=== PATIENT | male | born 1985 | race Caucasian/White ===

== ENCOUNTER 2018-12-31 12:28 | Emergency (ER) | payer SELFPAY ==
[~2018-12-31] VITALS: Ht 185.4 cm; Wt 70.3 kg
[2018-12-31] MEDS ORDERED: PRD20T PO (13:33)
--- NOTE | 2018-12-31 13:33 | ED Integumentary General ---
General Chief Complaint: Allergic Reaction Stated Complaint: ALLERGIC REACTION;RASH Nursing Triage Note: pt arrives to ED with c/o a rash over his abdomen and sides and some on his right leg. Pt has had this for two weeks and has tried multiple different creams but nothing will take it away. Pt states that the rash doesn't hurt or itch. Source: patient Exam Limitations: no limitations History of Present Illness Date Seen by Provider: Dec 31, 2018 Time Seen by Provider: 13:28 Initial Comments 33-year-old male who presents to the emergency room with complaints of a rash on his abdomen and upper and lower extremities that started 2 weeks ago. He reports that 2 weeks ago he did change laundry detergents and noticed the rash shortly after. He reports that initially the rash did itch but it just does not seem to be going away with the use of xkfz-aaj-jawynro creams and medications. Timing/Duration: week (2) Past Crcyxik-Pfzkpr-Taxroh Hx Patient Social History Alcohol Use: Denies Use Recreational Drug Use: No Smoking Status: Never a Smoker Recent Foreign Travel: No Contact w/Someone Who Travel: No Recent Infectious Disease Expo: No Recent Hopitalizations: No Seasonal Allergies Seasonal Allergies: No Past Medical History Surgeries: No Respiratory: No Cardiac: Yes Deep Vein Thrombosis Neurological: No Genitourinary: No Gastrointestinal: No Musculoskeletal: No Endocrine: No HEENT: No Cancer: No Psychosocial: No Integumentary: No Blood Disorders: No Physical Exam Vital Signs Vital Signs - First Documented 12/31/18 12:50 Temp 98.5 Pulse 87 Resp 20 B/P (MAP) 147/88 (107) O2 Delivery Room Air Capillary Refill : Less Than 3 Seconds Progress/Results/Core Measures Results/Orders Vital Signs/I&O 12/31/18 12:50 Temp 98.5 Pulse 87 Resp 20 B/P (MAP) 147/88 (107) O2 Delivery Room Air Blood Pressure Mean: 107 Departure Impression Primary Impression: Allergic reaction Disposition: 01 HOME, SELF-CARE Condition: Stable/Unchanged Departure-Patient Inst. Decision time for Depature: 13:31 Referrals: NO,LOCAL PHYSICIAN (PCP) Primary Care Physician Patient Instructions: Skin Rash (DC) Add. Discharge Instructions: Take medications as directed. Do not use any more of your laundry detergent, rewash any clothing that has already previously been washed in the detergent that you're allergic to. You may also use rspg-twv-gjsmvqz Benadryl, Zyrtec, Pepcid for additional relief and histamine blockers. Return back to the emergency room for worsening symptoms, shortness of breath, or any other concerns as needed. All discharge instructions reviewed with patient and/or family. Voiced understanding. Scripts Prednisone (Prednisone) 20 Mg Tab 40 MG PO DAILY for 5 Days, #10 TAB Prov: VERA MAO 12/31/18 VERA MAO Dec 31, 2018 13:33
[2018-12-31 13:43] VITALS: BP 147/88
== END 2018-12-31 13:43 | disposition home or self-care (01) ==
LOC: ER 12:30
DX: T78.40XA Allergy, unspecified, initial encounter (principal); Z86.718 Personal history of other venous thrombosis and embolism
CPT/HCPCS: 99281

== ENCOUNTER 2019-01-12 17:21 | Emergency (ER) | payer SELFPAY ==
[~2019-01-12] VITALS: Ht 180.3 cm; Wt 81.6 kg
[~2019-01-12 17:21] MED LIST: PRD20T PO
--- NOTE | 2019-01-12 18:07 | ED Lower Extremity ---
General Chief Complaint: Lower Extremity Stated Complaint: DX W/ BLOOD CLOT IN L LEG/MORE SWELLING/SORE Nursing Triage Note: THE PT IS AMBULATORY TO THE ROOM WITHOUT DIFFICULTY. NO DISTRESS IS SEEN ON ARRIVAL. LOC IS NORMAL FOR THE PT. 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 No shortness of breath or chest pains.. He had a DVT in the left lower extremity which was unprovoked about 4 years ago. He was living in [place] at the time and states that he had a hypercoagulability workup done which she believes was negative. He has no personal or family history of clots prior to that incident. 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 He was for a time on Xarelto but stopped that a year ago. He is a nonsmoker. Reports no recent travel, no recent surgery. He lives here in [place] now does not have a local physician. Onset: last week Severity: moderate Pain/Injury Location: left leg Modifying Factors: Worse With Movement Allergies and Home Medications Home Medications Prednisone 20 Mg Tab, 40 MG PO DAILY Prescribed by: VERA MAO on 12/31/18 1757 Patient Home Medication List Home Medication List Reviewed: Yes Review of Systems Constitutional: see HPI; No chills, No fever EENTM: see HPI Respiratory: no symptoms reported; No cough, No dyspnea on exertion, No hemoptysis, No short of breath Cardiovascular: no symptoms reported; No chest pain, No edema, No Hx of Intervention, No palpitations, No syncope, No vascular heart diseas Genitourinary: no symptoms reported Musculoskeletal: no symptoms reported Skin: see HPI Psychiatric/Neurological: No Symptoms Reported Past Htelkvq-Gbhhcp-Rbddde Hx Patient Social History Recent Foreign Travel: No Contact w/Someone Who Travel: No Recent Infectious Disease Expo: No Recent Hopitalizations: No Physical Abuse: No Sexual Abuse: No Mistreated: No Fear: No Seasonal Allergies Seasonal Allergies: No Past Medical History Surgeries: No Respiratory: No Cardiac: Yes Deep Vein Thrombosis Neurological: No Genitourinary: No Gastrointestinal: No Musculoskeletal: No Endocrine: No HEENT: No Cancer: No Psychosocial: No Integumentary: No Blood Disorders: No Physical Exam Vital Signs Vital Signs - First Documented 01/12/19 17:32 Temp 98.2 Pulse 109 Resp 16 B/P (MAP) 146/88 (107) Capillary Refill : Less Than 3 Seconds Height, Weight, BMI Height: 5'11.00" Weight: 180lbs. oz. 81.629344oy; BMI Method:Estimated General Appearance: WD/WN, no apparent distress HEENT: PERRL/EOMI, normal ENT inspection Neck: non-tender, full range of motion Cardiovascular: regular rate, rhythm, no murmur, other (heart rate 92, oxygen saturation 99% room air) Respiratory: lungs clear, normal breath sounds, no respiratory distress, no accessory muscle use Gastrointestinal: normal bowel sounds, non tender Hips: bilateral hip non-tender, bilateral hip normal inspection, bilateral hip normal range of motion Legs: left leg swelling (there is some swelling to the left lower extremity, there is a palpable engorged vein posteriorly. There is a leg size discrepancy. The right mid calf measures 38 cm circumference, the left midcalf at the same location measures 40cm circumference) Knees: bilateral knee non-tender, bilateral knee normal inspection, bilateral knee normal range of motion Ankles: bilateral ankle non-tender, bilateral ankle normal inspection, bilateral ankle normal range of motion Feet: bilateral foot non-tender, bilateral foot normal inspection, bilateral foot normal range of motion Neurologic/Psychiatric: alert, normal mood/affect, oriented x 3 Skin: normal color, warm/dry Progress/Results/Core Measures Results/Orders Lab Results Laboratory Tests Test 01/12/19 18:07 Range/Units White Blood Count 6.8 4.3-11.0 10^3/uL Red Blood Count 5.31 4.35-5.85 10^6/uL Hemoglobin 16.2 13.3-17.7 G/DL Hematocrit 46 40-54 % Mean Corpuscular Volume 86 80-99 FL Mean Corpuscular Hemoglobin 31 25-34 PG Mean Corpuscular Hemoglobin Concent 36 32-36 G/DL Red Cell Distribution Width 12.2 10.0-14.5 % Platelet Count 205 130-400 10^3/uL Mean Platelet Volume 10.4 7.4-10.4 FL Neutrophils (%) (Auto) 65 42-75 % Lymphocytes (%) (Auto) 26 12-44 % Monocytes (%) (Auto) 8 0-12 % Eosinophils (%) (Auto) 1 0-10 % Basophils (%) (Auto) 0 0-10 % Neutrophils # (Auto) 4.4 1.8-7.8 X 10^3 Lymphocytes # (Auto) 1.8 1.0-4.0 X 10^3 Monocytes # (Auto) 0.5 0.0-1.0 X 10^3 Eosinophils # (Auto) 0.1 0.0-0.3 10^3/uL Basophils # (Auto) 0.0 0.0-0.1 10^3/uL D-Dimer 0.51 H 0.00-0.49 UG/ML Sodium Level 139 135-145 MMOL/L Potassium Level 3.6 3.6-5.0 MMOL/L Chloride Level 104 98-107 MMOL/L Carbon Dioxide Level 25 21-32 MMOL/L Anion Gap 10 5-14 MMOL/L Blood Urea Nitrogen 15 7-18 MG/DL Creatinine 1.23 0.60-1.30 MG/DL Estimat Glomerular Filtration Rate > 60 BUN/Creatinine Ratio 12 Glucose Level 85 70-105 MG/DL Calcium Level 9.6 8.5-10.1 MG/DL My Orders Orders - NÉSTOR MINA APRN Cbc With Automated Diff (01/12/19 18:02) Fibrin Degradation Products (01/12/19 18:02) Basic Metabolic Panel (01/12/19 18:02) Vital Signs/I&O 01/12/19 17:32 Temp 98.2 Pulse 109 Resp 16 B/P (MAP) 146/88 (107) Blood Pressure Mean: 107 Departure Communication (Admissions) 1903-given the calf circumference discrepancy, the elevated d-dimer and history of DVT it would be reasonable to start him on anticoagulation. Given prescription for xaarelto. Impression Primary Impression: Suspected DVT (deep vein thrombosis) Disposition: 01 HOME, SELF-CARE Condition: Stable Departure-Patient Inst. Decision time for Depature: 19:04 Referrals: TAMARA LIAO BETHANY N MD GAULT,DARRICK RICHARDSER,KIKO F MD NO,LOCAL PHYSICIAN (PCP) Primary Care Physician Patient Instructions: Deep Vein Thrombosis (Blood Clots in the Legs) Add. Discharge Instructions: 1. Call the [facility] at the listed number below tomorrow to make an appointment to be seen as soon as possible this week to obtain an ultrasound. Scripts Rivaroxaban (Xarelto) 15 Mg Tablet 15 MG PO BID, #42 TAB Prov: NÉSTOR MINA APRN 01/12/19 Copy Copies To 1: TAMARA LIAO DO; DEVENDRA NEVILLE MD; DARRICK RIOJAS MD, PETER J APRN Jan 12, 2019 18:07
[2019-01-12 18:13] LABS: BASOPHILS % (AUTO) 0 % (0-10); EOSINOPHILS # (AUTO) 0.1 10^3/uL (0.0-0.3); EOSINOPHILS % (AUTO) 1 % (0-10); HEMATOCRIT 46 % (40-54); HEMOGLOBIN 16.2 G/DL (13.3-17.7); LYMPHOCYTES # (AUTO) 1.8 X 10^3 (1.0-4.0); LYMPHOCYTES % (AUTO) 26 % (12-44); MEAN CORPUSCULAR HEMOGLOBIN 31 PG (25-34); MEAN CORPUSCULAR HGB CONC 36 G/DL (32-36); MEAN CORPUSCULAR VOLUME 86 FL (80-99); MEAN PLATELET VOLUME 10.4 FL (7.4-10.4); MONOCYTES # (AUTO) 0.5 X 10^3 (0.0-1.0); MONOCYTES % (AUTO) 8 % (0-12); NEUTROPHILS # (AUTO) 4.4 X 10^3 (1.8-7.8); NEUTROPHILS % (AUTO) 65 % (42-75); PLATELET COUNT 205 10^3/uL (130-400); RED CELL DISTRIBUTION WIDTH 12.2 % (10.0-14.5); WHITE BLOOD COUNT 6.8 10^3/uL (4.3-11.0)
[2019-01-12 18:37] LABS: BUN/CREATININE RATIO 12; CALCIUM 9.6 MG/DL (8.5-10.1); CARBON DIOXIDE 25 MMOL/L (21-32); CHLORIDE 104 MMOL/L (98-107); CREATININE SERUM 1.23 MG/DL (0.60-1.30); GFR ESTIMATED > 60; GLUCOSE 85 MG/DL (70-105); POTASSIUM 3.6 MMOL/L (3.6-5.0); SODIUM 139 MMOL/L (135-145)
[2019-01-12] MEDS ORDERED: RIVA15TA PO (19:10)
[2019-01-12 19:26] VITALS: BP 140/80
[2019-01-12] MEDS ORDERED: RIVAROXABAN 15 MG TABLET (XARELTO) PO ONE (19:30)
== END 2019-01-12 19:27 | disposition home or self-care (01) ==
LOC: EDUNIT# 17:21 → ER 17:23
DX: M79.89 Other specified soft tissue disorders (principal); M79.605 Pain in left leg; Z79.52 Long term (current) use of systemic steroids; Z86.718 Personal history of other venous thrombosis and embolism
CPT/HCPCS: 36415; 80048; 85025; 85379; 99283

== ENCOUNTER 2021-01-24 07:15 | Emergency (ER) | payer OTHER ==
[~2021-01-24] VITALS: Ht 182.8 cm; Wt 84.0 kg
[~2021-01-24 07:15] MED LIST changes: +RIVA15TA2 PO
--- NOTE | 2021-01-24 07:44 | ED EENT ---
History of Present Illness General Chief Complaint: Dental Problems/Pain Stated Complaint: ABCESS TOOTH Nursing Triage Note: AMB TO ROOM C/O TOOTH ACHE L LOWER Source: patient Exam Limitations: no limitations History of Present Illness Date Seen by Provider: Jan 24, 2021 Time Seen by Provider: 07:20 Initial Comments Here with report of left lower jaw swelling and tooth pain. Does have fractured tooth. He will be seeing a dentist soon. Pain started few days ago and was markedly worse yesterday and this morning he woke up with quite a bit of swelling. This concerned him so he presented to the ED. Denies fever, swallowing or breathing problems or other concerns. Pain is better with Tylenol. Timing/Duration: gradual, other (Few days) Severity: moderate Location: facial (Swelling), dental (Pain) Prearrival Treatment: over the counter meds Associated Symptoms: facial pain/swelling; No fever Allergies and Home Medications Allergies Coded Allergies: No Known Drug Allergies (Unverified , 01/12/19) Home Medications Prednisone 20 Mg Tab, 40 MG PO DAILY Prescribed by: VERA MAO on 12/31/181332 Rivaroxaban 15 Mg Tablet, 15 MG PO BID Prescribed by: NÉSTOR MINA on 01/12/19 191 Patient Home Medication List Home Medication List Reviewed: Yes Review of Systems Review of Systems Constitutional: see HPI; No chills, No fever Mouth: pain, swelling Throat: denies pain, denies aphonia, denies muffled, denies painful swallowing Respiratory: no symptoms reported Cardiovascular: no symptoms reported Past Vlthzlg-Ntwwam-Zjyjpk Hx Past Med/Social Hx: Reviewed Nursing Past Med/Soc Hx Patient Social History Alcohol Use: Denies Use Smoking Status: Never a Smoker Recent Infectious Disease Expo: No Recent Hopitalizations: No Seasonal Allergies Seasonal Allergies: No Past Medical History Surgeries: No Respiratory: No Cardiac: Yes Deep Vein Thrombosis Neurological: No Genitourinary: No Gastrointestinal: No Musculoskeletal: No Endocrine: No HEENT: No Cancer: No Psychosocial: No Integumentary: No Blood Disorders: No Family Medical History Reviewed Nursing Family Hx Physical Exam Vital Signs Vital Signs - First Documented 01/24/21 07:21 Temp 36.4 Pulse 97 Resp 18 B/P (MAP) 133/82 (99) Pulse Ox 99 Height, Weight, BMI Height: 5'11.00" Weight: 180lbs. oz. 81.383285tv; 25.00 BMI Method:Estimated General Appearance: WD/WN, mild distress Mouth/Throat: maxillary swelling; No pharynx tenderness (Left), No trismus ( sided), No voice changes; other (Moderate swelling to the left lower jaw where he has 2 fractured teeth in the area of the teeth #20 and 21.) Neck: full range of motion, supple, normal inspection Cardiovascular: regular rate, rhythm, no murmur Respiratory: lungs clear, normal breath sounds Neurologic/Psychiatric: alert, oriented x 3 Skin: normal color, warm/dry Progress/Results/Core Measures Results/Orders My Orders Orders - ASH BEASLEY MD Rocephin 1000mg Im (01/24/21 07:45) Lidocaine 1% Inj 20 Ml (Xylocaine 1% Inj (01/24/21 07:45) Vital Signs/I&O 01/24/21 07:21 Temp 36.4 Pulse 97 Resp 18 B/P (MAP) 133/82 (99) Pulse Ox 99 Blood Pressure Mean: 99 Progress Progress Note : Progress Note Seen and evaluated. Due to the moderate swelling and rapid rate of progression since yesterday, we will give Rocephin 1 g IM and initiate outpatient antibiot ics. He will follow up with a dentist. Pain controlled with Tylenol. Discharged home with return precautions. Patient verbalized understanding instructions and agreement with plan. Departure Impression Primary Impression: Dental abscess Disposition: 01 HOME, SELF-CARE Condition: Stable Departure-Patient Inst. Decision time for Depature: 07:36 Referrals: NO,LOCAL PHYSICIAN (PCP/Family) Primary Care Physician Patient Instructions: Fractured Tooth (DC), Tooth Abscess (DC) Add. Discharge Instructions: All discharge instructions reviewed with patient and/or family. Voiced understanding. Take antibiotics as directed. You may take Tylenol/acetaminophen 1000 mg every 6 hours as needed for pain. Follow-up with the dentist [id number]. You should rinse your mouth 2-3 times daily with salt water by applying 1 teaspoon of table salt into 1 cup of warm water and then swishing and spitting solution. Continue to brush your teeth. You may use topical pain relief such as Anbesol gel over area of concern as well. Return for worse pain, swelling, swallowing or breathing problems, fever or other concerns as needed. Scripts Amoxicillin (Amoxicillin) 500 Mg Capsule 500 MG PO TID, #30 CAP 0 Refills Prov: ASH BEASLEY MD 01/24/21 Images Mouth/Nose 1 - Caries, Fracture Tooth, Swelling, Tenderness ASH BEASLEY MD Jan 24, 2021 07:44
[2021-01-24] MEDS ORDERED: LIDOCAINE 1% INJ 20 ML 20 ML VIAL INJ ONE (07:45)
[2021-01-24] MEDS ORDERED: cefTRIAXone 1,000 MG/2.86 ml vial (IM ONLY) IM ONE (07:45)
[2021-01-24] MEDS ORDERED: AMOX500C2 PO (07:52)
[2021-01-24 08:03] VITALS: BP 124/85
== END 2021-01-24 08:02 | disposition home or self-care (01) ==
LOC: EDUNIT# 07:15 → ER 07:18
DX: K04.7 Periapical abscess without sinus (principal); Z79.52 Long term (current) use of systemic steroids; Z79.01 Long term (current) use of anticoagulants
CPT/HCPCS: 99284

== ENCOUNTER 2021-02-01 14:11 | Emergency (ER) | payer OTHER ==
[~2021-02-01] VITALS: Ht 185.4 cm; Wt 84.4 kg
[~2021-02-01 14:11] MED LIST changes: +AMOX500C2 PO
--- NOTE | 2021-02-01 14:38 | ED General ---
General Chief Complaint: Dizziness/Syncope Stated Complaint: DIZZINESS, Nursing Triage Note: pt reports sunday had vomiting and dizziness. sun and sunday pt felt better. Today pt was at work when he suddenly had a weird feeling in his ear, became dizzy, had nausea and began puking. Pt is on antibiotics for a dental abcess. Nursing Sepsis Screen: No Definite Risk Source of Information: Patient Exam Limitations: No Limitations History of Present Illness Date Seen by Provider: Feb 01, 2021 Time Seen by Provider: 14:36 Initial Comments To ER with vomiting and dizziness. This followed a popping sensation in his left ear. He has had a few episodes of vomiting from the dizziness. The dizziness started first. He was recently treated for a left mandible abscess. He is still on amoxicillin for that. He is on Xarelto for history of recurrent DVT. He states that his dental abscess is much improved. Timing/Duration: 1-2 Days Severity: Moderate Associated Systoms: No Headaches; Nausea/Vomiting Allergies and Home Medications Allergies Coded Allergies: No Known Drug Allergies (Unverified , 01/12/19) Home Medications Amoxicillin 500 Mg Capsule, 500 MG PO TID Prescribed by: ASH BEASLEY on 01/24/21 0752 Prednisone 20 Mg Tab, 40 MG PO DAILY Prescribed by: VERA MAO on 12/31/18 1333 Rivaroxaban 15 Mg Tablet, 15 MG PO BID Prescribed by: NÉSTOR MINA on 01/12/19 1910 Patient Home Medication List Home Medication List Reviewed: Yes Review of Systems Review of Systems Constitutional: see HPI, dizziness EENTM: see HPI Respiratory: no symptoms reported Cardiovascular: no symptoms reported Genitourinary: no symptoms reported Musculoskeletal: no symptoms reported Past Hnesepj-Kgfucl-Okpluw Hx Patient Social History Alcohol Use: Denies Use Drug of Choice: Marijuana once a month Smoking Status: Never a Smoker Recent Infectious Disease Expo: No Recent Hopitalizations: No Seasonal Allergies Seasonal Allergies: No Past Medical History Surgeries: No Respiratory: No Cardiac: Yes Deep Vein Thrombosis Neurological: No Genitourinary: No Gastrointestinal: No Musculoskeletal: No Endocrine: No HEENT: No Cancer: No Psychosocial: No Integumentary: No Blood Disorders: No Physical Exam Vital Signs Vital Signs - First Documented 02/01/21 14:20 Temp 37.1 Pulse 78 Resp 16 B/P (MAP) 123/81 (95) Pulse Ox 98 O2 Delivery Room Air Capillary Refill : Less Than 3 Seconds Height, Weight, BMI Height: 5'11.00" Weight: 180lbs. oz. 81.792567ng; 24.00 BMI Method:Estimated General Appearance: No Apparent Distress, WD/WN Eyes: Bilateral Eye Normal Inspection, Bilateral Eye PERRL, Bilateral Eye EOMI HEENT: PERRL/EOMI, TMs Normal Neck: Full Range of Motion, Normal Inspection Respiratory: Normal Breath Sounds, No Accessory Muscle Use, No Respiratory Distress Cardiovascular: Regular Rate, Rhythm, Normal Peripheral Pulses Gastrointestinal: Normal Bowel Sounds, Non Tender, Soft Extremity: Normal Capillary Refill, Normal Inspection Neurologic/Psychiatric: Alert, Oriented x3 Skin: Normal Color, Warm/Dry Progress/Results/Core Measures Suspected Sepsis Recent Fever Within 48 Hours: No Infection Criteria Present: None New/Unexplained Altered Menta: No Sepsis Screen: No Definite Risk SIRS Temperature: Pulse: 78 Respiratory Rate: 16 Laboratory Tests 02/01/21 14:30: White Blood Count 13.2H Blood Pressure 123 /81 Mean: 95 Laboratory Tests 02/01/21 14:30: Creatinine 0.89, Platelet Count 262 Results/Orders Lab Results Laboratory Tests Test 02/01/21 14:30 Range/Units White Blood Count 13.2 H 4.3-11.0 10^3/uL Red Blood Count 5.09 4.30-5.52 10^6/uL Hemoglobin 15.2 13.3-17.7 g/dL Hematocrit 46 40-54 % Mean Corpuscular Volume 89 80-99 fL Mean Corpuscular Hemoglobin 30 25-34 pg Mean Corpuscular Hemoglobin Concent 33 32-36 g/dL Red Cell Distribution Width 12.0 10.0-14.5 % Platelet Count 262 130-400 10^3/uL Mean Platelet Volume 10.0 9.0-12.2 fL Immature Granulocyte % (Auto) 1 % Neutrophils (%) (Auto) 90 H 42-75 % Lymphocytes (%) (Auto) 6 L 12-44 % Monocytes (%) (Auto) 3 0-12 % Eosinophils (%) (Auto) 0 0-10 % Basophils (%) (Auto) 0 0-10 % Neutrophils # (Auto) 11.9 H 1.8-7.8 10^3/uL Lymphocytes # (Auto) 0.8 L 1.0-4.0 10^3/uL Monocytes # (Auto) 0.4 0.0-1.0 10^3/uL Eosinophils # (Auto) 0.0 0.0-0.3 10^3/uL Basophils # (Auto) 0.0 0.0-0.1 10^3/uL Immature Granulocyte # (Auto) 0.1 0.0-0.1 10^3/uL Neutrophils % (Manual) 90 % Lymphocytes % (Manual) 6 % Monocytes % (Manual) 2 % Eosinophils % (Manual) 0 % Basophils % (Manual) 0 % Band Neutrophils 2 % Blood Morphology Comment NORMAL Sodium Level 142 135-145 MMOL/L Potassium Level 4.0 3.6-5.0 MMOL/L Chloride Level 106 98-107 MMOL/L Carbon Dioxide Level 23 21-32 MMOL/L Anion Gap 13 5-14 MMOL/L Blood Urea Nitrogen 10 7-18 MG/DL Creatinine 0.89 0.60-1.30 MG/DL Estimat Glomerular Filtration Rate > 60 BUN/Creatinine Ratio 11 Glucose Level 99 70-105 MG/DL Calcium Level 9.2 8.5-10.1 MG/DL My Orders Orders - NÉSTOR MINA APRN Cbc With Automated Diff (02/01/21 14:34) Basic Metabolic Panel (02/01/21 14:34) Ct Head Wo (02/01/21 14:34) Ed Iv/Invasive Line Start (02/01/21 14:34) Meclizine Tablet (Antivert Tablet) (02/01/21 14:45) Ns Iv 1000 Ml (Sodium Chloride 0.9%) (02/01/21 14:45) Manual Differential (02/01/21 14:30) Medications Given in ED Current Medications Medications Dose Ordered Sig/Wojciech Route Start Time Stop Time Status Last Admin Dose Admin Meclizine HCl 25 mg ONCE ONCE PO 02/01/21 14:45 02/01/21 14:46 DC 02/01/21 14:46 25 MG Vital Signs/I&O 02/01/21 14:20 Temp 37.1 Pulse 78 Resp 16 B/P (MAP) 123/81 (95) Pulse Ox 98 O2 Delivery Room Air Capillary Refill : Less Than 3 Seconds Blood Pressure Mean: 95 Departure Impression Primary Impression: Dizziness Disposition: 01 HOME, SELF-CARE Condition: Stable Departure-Patient Inst. Decision time for Depature: 15:20 Referrals: DARRICK RIOJAS MD (PCP/Family) Primary Care Physician Patient Instructions: Vertigo (a Type of Dizziness) (DC) Add. Discharge Instructions: 1. Finish out your antibiotics 2. Medication as directed 3. Return to ER for any worsening 4. Follow-up with your doctor next week. All discharge instructions reviewed with patient and/or family. Voiced unders tanding. Scripts Meclizine HCl (Meclizine HCl) 25 Mg Tablet 25 MG PO TID, #10 TAB Prov: NÉSTOR MINA APRN 02/01/21 NÉSTOR MINA APRN Feb 01, 2021 14:37
[2021-02-01 14:40] LABS: BASOPHILS % (AUTO) 0 % (0-10); EOSINOPHILS % (AUTO) 0 % (0-10); HEMATOCRIT 46 % (40-54); HEMOGLOBIN 15.2 g/dL (13.3-17.7); LYMPHOCYTES # (AUTO) 0.8 10^3/uL (1.0-4.0); LYMPHOCYTES % (AUTO) 6 % (12-44); MEAN CORPUSCULAR HEMOGLOBIN 30 pg (25-34); MEAN CORPUSCULAR HGB CONC 33 g/dL (32-36); MEAN CORPUSCULAR VOLUME 89 fL (80-99); MONOCYTES # (AUTO) 0.4 10^3/uL (0.0-1.0); MONOCYTES % (AUTO) 3 % (0-12); NEUTROPHILS # (AUTO) 11.9 10^3/uL (1.8-7.8); NEUTROPHILS % (AUTO) 90 % (42-75); PLATELET COUNT 262 10^3/uL (130-400); WHITE BLOOD COUNT 13.2 10^3/uL (4.3-11.0)
[2021-02-01] MEDS ORDERED: MECLIZINE 25 MG (ANTIVERT) TAB PO ONE (14:45)
[2021-02-01] MEDS ORDERED: NS IV 1000 ML 1,000 ML IV SCH (14:45)
[2021-02-01 14:51] LABS: CHLORIDE 106 MMOL/L (98-107); SODIUM 142 MMOL/L (135-145)
[2021-02-01 14:52] LABS: CALCIUM 9.2 MG/DL (8.5-10.1); GLUCOSE 99 MG/DL (70-105)
[2021-02-01 14:54] LABS: CARBON DIOXIDE 23 MMOL/L (21-32)
[2021-02-01 14:56] LABS: CREATININE SERUM 0.89 MG/DL (0.60-1.30); GFR ESTIMATED > 60
[2021-02-01 14:57] LABS: BUN/CREATININE RATIO 11
[2021-02-01 15:00] LABS: BAND NEUTROPHILS 2 %; BASOPHILS % (MANUAL) 0 %; EOSINOPHILS % (MANUAL) 0 %; LYMPHOCYTES % (MANUAL) 6 %; MONOCYTES % (MANUAL) 2 %; NEUTROPHILS % (MANUAL) 90 %; RBC MORPH NORMAL
--- NOTE | 2021-02-01 15:08 | Diagnostic Imaging Report ---
INDICATION: Dizziness. Vomiting. TECHNIQUE: Routine non contrast-enhanced axial images were obtained from the skull base to the vertex. Auto Exposure Controls were utilized during the CT exam to meet ALARA standards for radiation dose reduction COMPARISON: None. FINDINGS: The ventricles and cortical sulci are normal in size and contour. There is no midline shift or mass-effect. No acute intra-axial hemorrhage is seen. There are no abnormal areas of increased or decreased density to suggest acute hemorrhage or edema. No extra-axial masses or collections are present. The bony calvarium is intact. The visualized paranasal sinuses are unremarkable. The mastoid air cells are clear. IMPRESSION: 1. No acute intracranial abnormality. No CT evidence of mass, acute infarct or intracranial hemorrhage. Dictated by: Dictated on workstation # [id number]
[2021-02-01] MEDS ORDERED: MECL-149 PO (15:21)
[2021-02-01 16:26] VITALS: BP 113/73
== END 2021-02-01 16:26 | disposition home or self-care (01) ==
LOC: EDUNIT# 14:11 → ER 14:13
DX: R42 Dizziness and giddiness (principal); Z86.718 Personal history of other venous thrombosis and embolism; Z79.01 Long term (current) use of anticoagulants; Z79.52 Long term (current) use of systemic steroids
CPT/HCPCS: 36415; 70450; 80048; 85007; 85027; 96360; 96361

== ENCOUNTER 2022-10-25 09:55 | Emergency (ER) | payer OTHER ==
[~2022-10-25] VITALS: Ht 185 cm; Wt 88.4 kg
[~2022-10-25 09:55] MED LIST changes: +MECL-149 PO
--- NOTE | 2022-10-25 11:17 | ED General ---
General Chief Complaint: General Problems/Pain Stated Complaint: NAUSEA | DIZZINESS Nursing Triage Note: PT PRESENTS TO ED WITH COMPLAINTS OF INTERMITTENT NAUSEA, DIZZINESS, FATIGUE, AND HUNGER SINCE 10/17/22. PT DENIES ANY FEVER. PT REPORTS HE HAS TAKEN SEVERAL HOME COVID TESTS SINCE HE STARTED FEELING ILL AND THEY HAVE ALL BEEN NEGATIVE. Source of Information: Patient Exam Limitations: No Limitations History of Present Illness Date Seen by Provider: Oct 25, 2022 Time Seen by Provider: 11:05 Initial Comments This is a 37-year-old male who presented to the ER via POV with complaints of intermittent nausea, fatigue, dizziness since October 17, 2022. States that every other day he will just feel "terrible". Yesterday he felt great, today he attempted to eat a sandwich because he was hungry and shortly after eating he felt nauseated. Has had intermittent diarrhea, denies bloody, dark, tarry stools. Denies fever, chills, cough, abdominal pain, dysuria. Has taken several home COVID test and all have been negative. No recent travel. No new foods or change in routine. Tolerated water and fluids w/o difficulty. Only reported past medical problem is DVT last year, completed Xarelto. Denies leg pain, swelling, warmth at this time. Allergies and Home Medications Allergies Coded Allergies: No Known Drug Allergies (Unverified , 01/12/19) Patient Home Medication List Home Medication List Reviewed: Yes Amoxicillin (Amoxicillin) 500 Mg Capsule, 500 MG PO TID Prescribed by: ASH BEASLEY on 01/24/21 0752 Meclizine HCl (Meclizine HCl) 25 Mg Tablet, 25 MG PO TID Prescribed by: NÉSTOR MINA on 02/01/21 1521 Prednisone (Prednisone) 20 Mg Tab, 40 MG PO DAILY Prescribed by: VERA MAO on 12/31/18 1333 Rivaroxaban (Xarelto Tablet) 15 Mg Tablet, 15 MG PO BID Prescribed by: NÉSTOR MINA on 01/12/19 191 Review of Systems Review of Systems Constitutional: see HPI Past Ijjsdmm-Tiuire-Pftppi Hx Patient Social History Tobacco Use?: No Substance use?: No Alcohol Use?: No Pt feels they are or have been: No Seasonal Allergies Seasonal Allergies: No Past Medical History Surgery/Hospitalization HX: DVT Surgeries: No Respiratory: No Cardiac: Yes Deep Vein Thrombosis Neurological: No Genitourinary: No Gastrointestinal: No Musculoskeletal: No Endocrine: No HEENT: No Cancer: No Psychosocial: No Integumentary: No Blood Disorders: No Physical Exam Vital Signs Vital Signs - First Documented 10/25/22 10:05 Temp 36.1 Pulse 90 Resp 18 B/P (MAP) 135/101 (112) Pulse Ox 98 Capillary Refill : Less Than 3 Seconds Height, Weight, BMI Height: 5'11.00" Weight: 180lbs. oz. 81.358721nc; 25.00 BMI Method:Estimated General Appearance: No Apparent Distress, WD/WN Eyes: Bilateral Eye Normal Inspection, Bilateral Eye PERRL, Bilateral Eye EOMI HEENT: PERRL/EOMI, Normal ENT Inspection, Pharynx Normal Neck: Full Range of Motion, Normal Inspection, Supple Respiratory: Lungs Clear, Normal Breath Sounds, No Accessory Muscle Use, No Respiratory Distress Cardiovascular: Regular Rate, Rhythm, No Edema, No Gallop, No Murmur Gastrointestinal: Normal Bowel Sounds; No No Organomegaly; Non Tender, Soft Back: Normal Inspection, No Vertebral Tenderness Extremity: Normal Capillary Refill, Normal Inspection, Normal Range of Motion Neurologic/Psychiatric: Alert, Oriented x3, No Motor/Sensory Deficits, Normal Mood/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, 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 Norm as Tested Skin: Normal Color, Warm/Dry Progress/Results/Core Measures Suspected Sepsis SIRS Temperature: Pulse: 90 Respiratory Rate: 18 Laboratory Tests 10/25/22 12:17: White Blood Count 6.2 Blood Pressure 135 /101 Mean: 112 Laboratory Tests 10/25/22 12:17: Platelet Count 217 Results/Orders Lab Results Laboratory Tests Test 10/25/22 11:13 10/25/22 11:14 10/25/22 12:17 Range/Units Influenza Type A (RT-PCR) Not Detected Not Detecte Influenza Type B (RT-PCR) Not Detected Not Detecte SARS-CoV-2 RNA (RT-PCR) Not Detected Not Detecte Urine Color YELLOW Urine Clarity CLEAR Urine pH 6.0 5-9 Urine Specific [place] >=1.030 1.016-1.022 Urine Protein NEGATIVE NEGATIVE Urine Glucose (UA) NEGATIVE NEGATIVE Urine Ketones NEGATIVE NEGATIVE Urine Nitrite NEGATIVE NEGATIVE Urine Bilirubin NEGATIVE NEGATIVE Urine Urobilinogen 0.2 < = 1.0 MG/DL Urine Leukocyte Esterase NEGATIVE NEGATIVE Urine RBC (Auto) NEGATIVE NEGATIVE Urine RBC NONE /HPF Urine WBC RARE /HPF Urine Crystals PRESENT H /LPF Urine Amorphous Sediment RARE REGINA URATES H /LPF Urine Bacteria NEGATIVE /HPF Urine Casts NONE /LPF Urine Mucus MODERATE H /LPF Urine Culture Indicated NO White Blood Count 6.2 4.3-11.0 10^3/uL Red Blood Count 5.58 H 4.30-5.52 10^6/uL Hemoglobin 16.9 13.3-17.7 g/dL Hematocrit 48 40-54 % Mean Corpuscular Volume 86 80-99 fL Mean Corpuscular Hemoglobin 30 25-34 pg Mean Corpuscular Hemoglobin Concent 35 32-36 g/dL Red Cell Distribution Width 11.9 10.0-14.5 % Platelet Count 217 130-400 10^3/uL Mean Platelet Volume 10.2 9.0-12.2 fL Immature Granulocyte % (Auto) 0 % Neutrophils (%) (Auto) 73 42-75 % Lymphocytes (%) (Auto) 21 12-44 % Monocytes (%) (Auto) 5 0-12 % Eosinophils (%) (Auto) 1 0-10 % Basophils (%) (Auto) 1 0-10 % Neutrophils # (Auto) 4.5 1.8-7.8 10^3/uL Lymphocytes # (Auto) 1.3 1.0-4.0 10^3/uL Monocytes # (Auto) 0.3 0.0-1.0 10^3/uL Eosinophils # (Auto) 0.0 0.0-0.3 10^3/uL Basophils # (Auto) 0.0 0.0-0.1 10^3/uL Immature Granulocyte # (Auto) 0.0 0.0-0.1 10^3/uL Sodium Level 139 135-145 MMOL/L Potassium Level 4.5 3.6-5.0 MMOL/L Chloride Level 106 98-107 MMOL/L Glucose Level 83 70-105 MG/DL Calcium Level 9.6 8.5-10.1 MG/DL Corrected Calcium 8.5-10.1 MG/DL Total Protein 8.0 6.4-8.2 GM/DL Albumin 4.6 H 3.2-4.5 GM/DL My Orders Orders - INGA BOUCHER PLASTERER TENDER Thyroid Stimulating Hormone (10/25/22 11:02) Cbc With Automated Diff (10/25/22 11:02) Comprehensive Metabolic Panel (10/25/22 11:02) Covid 19 Inhouse Test (10/25/22 11:02) Influenza A And B By Pcr (10/25/22 11:02) Ua Culture If Indicated (10/25/22 11:02) Magnesium (10/25/22 11:21) Vital Signs/I&O 10/25/22 10:05 Temp 36.1 Pulse 90 Resp 18 B/P (MAP) 135/101 (112) Pulse Ox 98 Capillary Refill : Less Than 3 Seconds Blood Pressure Mean: 112 Progress Note : Progress Note Patient examined in no acute distress. Vital signs are stable, no temperature at this time. Has vague symptoms, may represent gastrointestinal virus versus bacterial infection. We will go ahead and obtain COVID and flu swabs to rule out viral source. Additionally will add CBC to evaluate for infectious process or low hemoglobin. Reported a few green bile stools, states that he did eat leafy greens the day before. CMP added, will evaluate LFTs and renal function as well as electrolytes. We will also add magnesium level. TSH added to evaluate for hypothyroidsim. Departure Impression Primary Impression: Fatigue Additional Impressions: Nausea Diarrhea Disposition: HOME, SELF-CARE Condition: Stable Departure-Patient Inst. Decision time for Depature: 12:45 Referrals: DARRICK RIOJAS MD (PCP/Family) Primary Care Physician Patient Instructions: Fatigue ED Add. Discharge Instructions: Plan: 1. Follow-up with Dr. Riojas later this week or next week if your symptoms persist. 2. You can take Zofran 1 tablet by mouth 15 minutes before eating to see if this improves your nausea. 3. I would start with small bland foods and advance as tolerated. 4. Return to the ER for any new, concerning, worsening symptoms. All discharge instructions reviewed with patient and/or family. Voiced understanding. Scripts Ondansetron (Ondansetron Odt) 4 Mg Tab.rapdis 4 MG PO Q6H PRN for NAUSEA/VOMITING, #8 TAB 0 Refills Prov: INGA BOUCHER APRN 10/25/22 Work/School Note: Work Release Form Date Seen in the Emergency Department: Oct 25, 2022 Return to Work: Oct 26, 2022 Restrictions: No Restrictions INGA BOUCHER PLASTERER TENDER Oct 25, 2022 11:17
[2022-10-25 11:23] LABS: BILIRUBIN,URINE NEGATIVE (NEGATIVE); CLARITY,URINE CLEAR; COLOR,URINE YELLOW; GLUCOSE, URINE (UA) NEGATIVE (NEGATIVE); KETONES,URINE NEGATIVE (NEGATIVE); LEUKOCYTE ESTERASE ,URINE NEGATIVE (NEGATIVE); NITRITE,URINE NEGATIVE (NEGATIVE); PROTEIN,URINE NEGATIVE (NEGATIVE)
[2022-10-25 11:43] LABS: AMORPHOUS SEDIMENT,UR RARE AMOR URATES /LPF; BACTERIA,URINE NEGATIVE /HPF; WBC,URINE RARE /HPF
[2022-10-25 12:19] LABS: BASOPHILS % (AUTO) 1 % (0-10); EOSINOPHILS % (AUTO) 1 % (0-10); HEMATOCRIT 48 % (40-54); HEMOGLOBIN 16.9 g/dL (13.3-17.7); LYMPHOCYTES # (AUTO) 1.3 10^3/uL (1.0-4.0); LYMPHOCYTES % (AUTO) 21 % (12-44); MEAN CORPUSCULAR HEMOGLOBIN 30 pg (25-34); MEAN CORPUSCULAR HGB CONC 35 g/dL (32-36); MEAN CORPUSCULAR VOLUME 86 fL (80-99); MEAN PLATELET VOLUME 10.2 fL (9.0-12.2); MONOCYTES # (AUTO) 0.3 10^3/uL (0.0-1.0); MONOCYTES % (AUTO) 5 % (0-12); NEUTROPHILS # (AUTO) 4.5 10^3/uL (1.8-7.8); NEUTROPHILS % (AUTO) 73 % (42-75); PLATELET COUNT 217 10^3/uL (130-400); WHITE BLOOD COUNT 6.2 10^3/uL (4.3-11.0)
[2022-10-25 12:41] LABS: ALBUMIN 4.6 GM/DL (3.2-4.5); CHLORIDE 106 MMOL/L (98-107); POTASSIUM 4.5 MMOL/L (3.6-5.0); SODIUM 139 MMOL/L (135-145)
[2022-10-25 12:42] LABS: CALCIUM 9.6 MG/DL (8.5-10.1)
[2022-10-25 12:43] LABS: GLUCOSE 83 MG/DL (70-105)
[2022-10-25 12:45] LABS: BILIRUBIN,TOTAL 1.1 MG/DL (0.1-1.0); CARBON DIOXIDE 22 MMOL/L (21-32)
[2022-10-25] MEDS ORDERED: ONDA4TAB11 PO (12:46)
[2022-10-25 12:47] LABS: ALKALINE PHOSPHATASE 76 U/L (40-136); CREATININE SERUM 1.07 MG/DL (0.60-1.30); GFR ESTIMATED 92
[2022-10-25 12:48] LABS: BUN/CREATININE RATIO 15
[2022-10-25 12:50] LABS: ALANINE AMINOTRANSFERASE 27 U/L (0-55); MAGNESIUM 2.1 MG/DL (1.6-2.4)
[2022-10-25 13:41] VITALS: BP 135/101
== END 2022-10-25 13:24 | disposition home or self-care (01) ==
LOC: EDUNIT# 09:55 → ER 09:57
DX: R53.83 Other fatigue (principal); R11.0 Nausea; R19.7 Diarrhea, unspecified; Z20.822 Contact with and (suspected) exposure to COVID-19
CPT/HCPCS: 36415; 80053; 81000; 83735; 84443; 85025; 87636

== ENCOUNTER 2023-03-16 07:42 | Emergency (ER) | payer OTHER ==
[~2023-03-16] VITALS: Ht 185.5 cm; Wt 86.2 kg
[~2023-03-16 07:42] MED LIST changes: +ONDA4TAB11 PO
[2023-03-16 07:51] VITALS: BP 123/89
--- NOTE | 2023-03-16 08:04 | ED EENT ---
History of Present Illness General Chief Complaint: Ear Problems Stated Complaint: RT EAR PAIN Nursing Triage Note: PT AMB TO [facility] 5 WITH COMPLAINT OF EAR FULLNESS AND HEAD SWIMMING. STATES HAD AN EAR INFECTION ABOUT A MONTH AGO. Source: patient Exam Limitations: no limitations History of Present Illness Date Seen by Provider: March 16, 2023 Time Seen by Provider: 07:53 Initial Comments Here with report of right ear fullness and feeling a little off balance. He is recently recovered from a head cold and ear infection on the right. Completed antibiotics and was doing better. States today he had the fullness. He did try some Sudafed but has not had significant relief yet. 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 Denies significant sore throat, fever or breathing problems. Does admit to seasonal allergies. Timing/Duration: gradual, this morning Location: ear (R) Prearrival Treatment: over the counter meds Associated Symptoms: No cough, No ear drainage, No fever; nasal congestion/drainage; No sore throat Allergies and Home Medications Allergies Coded Allergies: No Known Drug Allergies (Unverified , 01/12/19) Patient Home Medication List Home Medication List Reviewed: Yes Amoxicillin (Amoxicillin) 500 Mg Capsule, 500 MG PO TID Prescribed by: ASH BEASLEY on 01/24/21 0752 Meclizine HCl (Meclizine HCl) 25 Mg Tablet, 25 MG PO TID Prescribed by: NÉSTOR MINA on 02/01/21 1521 Ondansetron (Ondansetron Odt) 4 Mg Tab.rapdis, 4 MG PO Q6H PRN for NAUSEA/VOMITING Prescribed by: INGA BOUCHER on 10/25/22 1246 Prednisone (Prednisone) 20 Mg Tab, 40 MG PO DAILY Prescribed by: VERA MAO on 12/31/18 1333 Rivaroxaban (Xarelto Tablet) 15 Mg Tablet, 15 MG PO BID Prescribed by: NÉSTOR MINA on 01/12/191909 Review of Systems Review of Systems Constitutional: see HPI Eyes: No Symptoms Reported Ears: See HPI Nose: congestion Respiratory: No cough, No short of breath Cardiovascular: no symptoms reported Past Bwogeko-Obtlij-Qcnlqk Hx Patient Social History Tobacco Use?: No Use of E-Cig and/or Vaping dev: No Substance use?: No Alcohol Use?: No Pt feels they are or have been: No Seasonal Allergies Seasonal Allergies: No Past Medical History Surgery/Hospitalization HX: DVT Surgeries: No Respiratory: No Cardiac: Yes Deep Vein Thrombosis Neurological: No Genitourinary: No Gastrointestinal: No Musculoskeletal: No Endocrine: No HEENT: No Cancer: No Psychosocial: No Integumentary: No Blood Disorders: No Family Medical History Reviewed Nursing Family Hx Physical Exam Vital Signs Vital Signs - First Documented 03/16/23 07:51 Temp 35.3 Pulse 69 Resp 17 B/P (MAP) 123/89 (100) Pulse Ox 98 O2 Delivery Room Air Height, Weight, BMI Height: 5'11.00" Weight: 180lbs. oz. 81.305804iu; 25.00 BMI Method:Estimated General Appearance: WD/WN, no apparent distress Eyes: bilateral eye normal inspection, bilateral eye PERRL, bilateral eye EOMI Ears: bilateral ear auricle normal, bilateral ear canal normal, bilateral ear TM bulging, bilateral ear other (Despite bulging, no loss of landmarks nor opacity noted.) Mouth/Throat: No uvula swelling; other (Pharyngeal erythema) Neck: full range of motion, supple Cardiovascular: regular rate, rhythm, no murmur Respiratory: lungs clear, normal breath sounds Neurologic/Psychiatric: alert, oriented x 3 Progress/Results/Core Measures Results/Orders Vital Signs/I&O 03/16/23 07:51 Temp 35.3 Pulse 69 Resp 17 B/P (MAP) 123/89 (100) Pulse Ox 98 O2 Delivery Room Air Blood Pressure Mean: 100 Progress Progress Note : Progress Note Seen and evaluated. Findings consistent with fluid buildup and allergies. We did discuss bqng-wbd-wobdzqx therapy including Afrin nasal spray and ibuprofen. Discharged home with return precautions. Patient verbalized understanding instructions and agreement with plan. Departure Impression Primary Impression: Ear pain, right Disposition: 01 HOME, SELF-CARE Condition: Improved Departure-Patient Inst. Decision time for Depature: 08:03 Referrals: DARRICK RIOJAS MD (PCP/Family) Primary Care Physician Patient Instructions: Fluid in the Ear ED Add. Discharge Instructions: All discharge instructions reviewed with patient and/or family. Voiced understanding. You may take Tylenol/acetaminophen 1000 mg every 8 hours as needed for fever or pain. You may take ibuprofen 600 mg every 8 hours as needed for fever or pain. You may use Afrin nasal spray or the generic, 12 hour relief, 2 sprays to each nostril twice daily for 3 days only and then stop. Do not use more than 3 days. Follow-up with your Dr. in a few days for recheck. Drink plenty of fluids. Return for worse pain, fever, vomiting, weakness, breathing problems or other concerns as needed. ASH BEASLEY MD March 16, 2023 08:04
== END 2023-03-16 08:10 | disposition home or self-care (01) ==
LOC: EDUNIT# 07:42 → ER 07:44
DX: H92.01 Otalgia, right ear (principal)
CPT/HCPCS: 99282

== ENCOUNTER 2023-05-18 18:51 | Emergency (ER) | payer OTHER ==
[~2023-05-18] VITALS: Ht 185.5 cm; Wt 85.0 kg
[2023-05-18] MEDS ORDERED: KETOROLAC 30 MG/ML VIAL IVP ONE (19:15)
[2023-05-18] MEDS ORDERED: NS IV 1000 ML 1,000 ML IV SCH (19:15)
--- NOTE | 2023-05-18 19:16 | ED Abdominal Pain ---
General Chief Complaint: Abdominal/GI Problems Stated Complaint: AB PAIN/NAUSEA Nursing Triage Note: PT AMB TO ED BY POV WITH C/O INTERMITTENT L SIDED ABD PAIN X 4-5 MONTHS. PT REPORTS SOME NAUSEA WITH PAIN. LBM YESTERDAY, NORMAL FOR PT. 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 Source of Information: Patient Exam Limitations: No Limitations History of Present Illness Date Seen by Provider: May 18, 2023 Time Seen by Provider: 19:06 Initial Comments 37-year-old male presents the ER with complaint of left-sided pain for the last 4 to 5 months. States the pain is intermittent, occurs approximately 1 time a week. Reports that it normally lasts about 1 hour, states that today it has lasted an hour and 1/2 to 2 hours. He reports that he also feels weak after this pain occurs. He reports nausea, no vomiting. Denies fevers, dysuria, hematuria, diarrhea. Reports he has been having issues with constipation, last bowel movement was yesterday and was hard. He denies any past medical history, does not take any medications regularly, denies any abdominal surgeries. Allergies and Home Medications Allergies Coded Allergies: No Known Drug Allergies (Unverified , 01/12/19) Patient Home Medication List Home Medication List Reviewed: Yes Amoxicillin (Amoxicillin) 500 Mg Capsule, 500 MG PO TID Prescribed by: ASH BEASLEY on 01/24/21 0752 Meclizine HCl (Meclizine HCl) 25 Mg Tablet, 25 MG PO TID Prescribed by: NÉSTOR MINA on 02/01/21 1521 Omeprazole (Omeprazole) 20 Mg Tab.rap.dr, 20 MG PO DAILY Prescribed by: Rehana Rivera on 05/18/23 210 Ondansetron (Ondansetron Odt) 4 Mg Tab.rapdis, 4 MG PO Q6H PRN for NAUSEA/VOMITING Prescribed by: INGA BOUCHER on 10/25/22 1246 Prednisone (Prednisone) 20 Mg Tab, 40 MG PO DAILY Prescribed by: VERA MAO on 12/31/18 1333 Rivaroxaban (Xarelto Tablet) 15 Mg Tablet, 15 MG PO BID Prescribed by: NÉSTOR MINA on 01/12/191909 Review of Systems Review of Systems Constitutional: see HPI Past Diwiniv-Djxvvy-Ampotl Hx Patient Social History Tobacco Use?: No Use of E-Cig and/or Vaping dev: No Substance use?: No Alcohol Use?: No Pt feels they are or have been: No Immunizations Up To Date Influenza Vaccine Up-to-Date: No; Not Current First/Initial COVID19 Vaccinat: X3 Seasonal Allergies Seasonal Allergies: No Past Medical History Surgery/Hospitalization HX: DVT Surgeries: No Respiratory: No Cardiac: Yes Deep Vein Thrombosis Neurological: No Genitourinary: No Gastrointestinal: No Musculoskeletal: No Endocrine: No HEENT: No Cancer: No Psychosocial: No Integumentary: No Blood Disorders: No Physical Exam Vital Signs Vital Signs - First Documented 05/18/23 19:02 Temp 37.1 Pulse 79 Resp 16 B/P (MAP) 143/81 (101) Pulse Ox 98 O2 Delivery Room Air Capillary Refill : Less Than 3 Seconds Height/Weight/BMI Height: 5'11.00" Weight: 180lbs. oz. 81.436768yt; 24.00 BMI Method:Estimated General Appearance: WD/WN, no apparent distress Neck: supple, normal inspection Respiratory: lungs clear, normal breath sounds, no respiratory distress, no accessory muscle use Cardiovascular: regular rate, rhythm Gastrointestinal: normal bowel sounds, non tender, soft Extremities: normal range of motion, normal inspection Back: no CVA tenderness Neurologic/Psychiatric: alert, normal mood/affect Skin: normal color, warm/dry Progress/Results/Core Measures Results/Orders Lab Results Laboratory Tests Test 05/18/23 19:07 05/18/23 19:24 Range/Units Urine Color YELLOW Urine Clarity CLEAR Urine pH 7.5 5-9 Urine Specific [place] 1.015 L 1.016-1.022 Urine Protein NEGATIVE NEGATIVE Urine Glucose (UA) NEGATIVE NEGATIVE Urine Ketones NEGATIVE NEGATIVE Urine Nitrite NEGATIVE NEGATIVE Urine Bilirubin NEGATIVE NEGATIVE Urine Urobilinogen 2.0 < = 1.0 MG/DL Urine Leukocyte Esterase NEGATIVE NEGATIVE Urine RBC (Auto) NEGATIVE NEGATIVE Urine RBC NONE /HPF Urine WBC NONE /HPF Urine Crystals NONE /LPF Urine Bacteria NEGATIVE /HPF Urine Casts NONE /LPF Urine Mucus SMALL H /LPF Urine Culture Indicated NO White Blood Count 6.8 4.3-11.0 10^3/uL Red Blood Count 4.95 4.30-5.52 10^6/uL Hemoglobin 15.2 13.3-17.7 g/dL Hematocrit 43 40-54 % Mean Corpuscular Volume 87 80-99 fL Mean Corpuscular Hemoglobin 31 25-34 pg Mean Corpuscular Hemoglobin Concent 35 32-36 g/dL Red Cell Distribution Width 12.1 10.0-14.5 % Platelet Count 228 130-400 10^3/uL Mean Platelet Volume 10.0 9.0-12.2 fL Immature Granulocyte % (Auto) 0 % Neutrophils (%) (Auto) 66 42-75 % Lymphocytes (%) (Auto) 27 12-44 % Monocytes (%) (Auto) 5 0-12 % Eosinophils (%) (Auto) 1 0-10 % Basophils (%) (Auto) 0 0-10 % Neutrophils # (Auto) 4.5 1.8-7.8 10^3/uL Lymphocytes # (Auto) 1.9 1.0-4.0 10^3/uL Monocytes # (Auto) 0.4 0.0-1.0 10^3/uL Eosinophils # (Auto) 0.1 0.0-0.3 10^3/uL Basophils # (Auto) 0.0 0.0-0.1 10^3/uL Immature Granulocyte # (Auto) 0.0 0.0-0.1 10^3/uL Sodium Level 141 135-145 MMOL/L Potassium Level 3.5 L 3.6-5.0 MMOL/L Chloride Level 105 98-107 MMOL/L Carbon Dioxide Level 26 21-32 MMOL/L Anion Gap 10 5-14 MMOL/L Blood Urea Nitrogen 14 7-18 MG/DL Creatinine 0.95 0.60-1.30 MG/DL Estimat Glomerular Filtration Rate 106 BUN/Creatinine Ratio 15 Glucose Level 99 70-105 MG/DL Calcium Level 9.0 8.5-10.1 MG/DL Corrected Calcium 8.9 8.5-10.1 MG/DL Total Bilirubin 0.9 0.1-1.0 MG/DL Aspartate Amino Transf (AST/SGOT) 19 5-34 U/L Alanine Aminotransferase (ALT/SGPT) 22 0-55 U/L Alkaline Phosphatase 65 40-136 U/L Total Protein 6.8 6.4-8.2 GM/DL Albumin 4.1 3.2-4.5 GM/DL Lipase 28 8-78 U/L My Orders Orders - REHANA MARRERO MANAGER FUNCTIONAL Comprehensive Metabolic Panel (05/18/23 19:10) Lipase (05/18/23 19:10) Ua Culture If Indicated (05/18/23 19:10) Ed Iv/Invasive Line Start (05/18/23 19:10) Cbc With Automated Diff (05/18/23 19:10) Ct Abdomen/Pelvis W (05/18/23 19:10) Ketorolac Injection (Toradol Injection) (05/18/23 19:15) Ns Iv 1000 Ml (Sodium Chloride 0.9%) (05/18/23 19:15) Iohexol Injection (Omnipaque 350 Mg/Ml 1 (05/18/23 20:00) Ns (Ivpb) 100 Ml (Sodium Chloride 0.9% 1 (05/18/23 20:00) Pantoprazole Injection (Protonix Injecti (05/18/23 21:00) Medications Given in ED Current Medications Medications Dose Ordered Sig/Wojciech Route Start Time Stop Time Status Last Admin Dose Admin Iohexol 100 ml ONCE ONCE IV 05/18/23 20:00 05/18/23 20:01 DC 05/18/23 20:09 80 ML Ketorolac Tromethamine 15 mg ONCE ONCE IVP 05/18/23 19:15 05/18/23 19:16 DC 05/18/23 19:27 15 MG Sodium Chloride 100 ml ONCE ONCE IV 05/18/23 20:00 05/18/23 20:01 DC 05/18/23 20:09 80 ML Vital Signs/I&O 05/18/23 19:02 Temp 37.1 Pulse 79 Resp 16 B/P (MAP) 143/81 (101) Pulse Ox 98 O2 Delivery Room Air Blood Pressure Mean: 101 Progress Progress Note : Progress Note Patient seen and evaluated, resting comfortably in bed, no acute distress. Based on exam and symptoms, work-up initiated including CBC, CMP, lipase, UA, CT abdomen pelvis. IV fluids and Toradol ordered. [address] reviewed. CBC grossly normal. CMP grossly normal, potassium slightly low 3.5. Urinalysis negative for infection. CT shows liver lesions, most likely cyst. Possible kidney stone or contrast excretion in the kidneys. Hyperdensities in the distal colon, likely constipation. And questionable wall thickness in the distal stomach likely gastritis. Results discussed with patient. Will treat patient for gastritis. Protonix ordered. Will discharge with omeprazole. Patient instructed to follow-up with surgery for possible endoscopy. Patient instructed to follow-up with primary care provider regarding liver lesions. Discharge instructions and return precautions provided. Departure Impression Primary Impression: Abdominal pain Additional Impressions: Gastritis Constipation Liver lesion, left lobe Disposition: HOME, SELF-CARE Condition: Stable Departure-Patient Inst. Decision time for Depature: 20:58 Referrals: OMKAR GLOVER HOLLY R MD (PCP/Family) Primary Care Physician Patient Instructions: Gastritis ED Add. Discharge Instructions: Take omeprazole daily for the next 6 weeks. Follow-up with surgery for a possible endoscopy. Follow-up with your primary care provider regarding the lesions on your liver. You may take MiraLAX or Colace [id number] to help soften your stools. Return for any new, concerning, or worsening symptoms. All discharge instructions reviewed with patient and/or family. Voiced understanding. Scripts Omeprazole (Omeprazole) 20 Mg Tab.jonas. 20 MG PO DAILY for 42 Days, #42 EA 0 Refills Prov: REHANA MARRERO APRN 05/18/23 REHANA MARRERO APRN May 18, 2023 19:16
[2023-05-18 19:18] LABS: BILIRUBIN,URINE NEGATIVE (NEGATIVE); CLARITY,URINE CLEAR; COLOR,URINE YELLOW; GLUCOSE, URINE (UA) NEGATIVE (NEGATIVE); KETONES,URINE NEGATIVE (NEGATIVE); LEUKOCYTE ESTERASE ,URINE NEGATIVE (NEGATIVE); NITRITE,URINE NEGATIVE (NEGATIVE); PH,URINE 7.5 (5-9); PROTEIN,URINE NEGATIVE (NEGATIVE)
[2023-05-18 19:26] LABS: BACTERIA,URINE NEGATIVE /HPF
[2023-05-18 19:30] LABS: BASOPHILS % (AUTO) 0 % (0-10); EOSINOPHILS # (AUTO) 0.1 10^3/uL (0.0-0.3); EOSINOPHILS % (AUTO) 1 % (0-10); HEMATOCRIT 43 % (40-54); HEMOGLOBIN 15.2 g/dL (13.3-17.7); LYMPHOCYTES # (AUTO) 1.9 10^3/uL (1.0-4.0); LYMPHOCYTES % (AUTO) 27 % (12-44); MEAN CORPUSCULAR HEMOGLOBIN 31 pg (25-34); MEAN CORPUSCULAR HGB CONC 35 g/dL (32-36); MEAN CORPUSCULAR VOLUME 87 fL (80-99); MONOCYTES # (AUTO) 0.4 10^3/uL (0.0-1.0); MONOCYTES % (AUTO) 5 % (0-12); NEUTROPHILS # (AUTO) 4.5 10^3/uL (1.8-7.8); NEUTROPHILS % (AUTO) 66 % (42-75); PLATELET COUNT 228 10^3/uL (130-400); WHITE BLOOD COUNT 6.8 10^3/uL (4.3-11.0)
[2023-05-18 19:55] LABS: ALBUMIN 4.1 GM/DL (3.2-4.5); BILIRUBIN,TOTAL 0.9 MG/DL (0.1-1.0); CREATININE SERUM 0.95 MG/DL (0.60-1.30); POTASSIUM 3.5 MMOL/L (3.6-5.0); TOTAL PROTEIN 6.8 GM/DL (6.4-8.2)
[2023-05-18] MEDS ORDERED: NS 100 ML (IVPB) BAG IV ONE (20:00)
[2023-05-18] MEDS ORDERED: IOHEXOL 350 MG/ML 100 ML (OMNIPAQUE 350) VIAL IV ONE (20:00)
--- NOTE | 2023-05-18 20:37 | Diagnostic Imaging Report ---
PROCEDURE: CT abdomen and pelvis with contrast. TECHNIQUE: Multiple contiguous axial images were obtained through the abdomen and pelvis after administration of intravenous contrast. Auto Exposure Controls were utilized during the CT exam to meet ALARA standards for radiation dose reduction. All CT scans use one or more of the following dose optimizing techniques: automated exposure control, MA and/or KvP adjustment based on patient size and exam type or iterative reconstruction. INDICATION: Left-sided abdominal pain. COMPARISON: None. FINDINGS: The lung bases are clear. The heart is normal in size. There is no pericardial effusion. The liver demonstrates well-circumscribed hypodense lesions, the largest in the left lobe measuring up to 1.6 cm in diameter, most likely cysts. No other lesion is seen. The spleen appears normal. The pancreas is unremarkable. The adrenal glands appear normal. The kidneys demonstrate either contrast excretion or small stones. No enhancing lesion and no hydronephrosis is seen. The appendix is normal. The bowel loops are nondistended without obstruction. There is stool in the colon with multiple hyperdensities distally. No free fluid or free air is seen. The aorta is normal in caliber. No lymphadenopathy is seen. There is questionable wall thickening versus heterogeneous ingested material in the distal stomach. No acute osseous abnormality is seen. IMPRESSION: Questionable wall thickening of the distal stomach, could represent a gastritis. There is heterogeneous ingested material in the stomach as well. There is no bowel obstruction. Dictated by: Dictated on workstation # [id number]
[2023-05-18] MEDS ORDERED: PANTOPRAZOLE 40 MG (PROTONIX) VIAL IV ONE (21:00)
[2023-05-18] MEDS ORDERED: OMEP-401 PO (21:01)
[2023-05-18 21:13] VITALS: BP 110/82
== END 2023-05-18 21:13 | disposition home or self-care (01) ==
LOC: EDUNIT# 18:51 → ER 18:54
DX: K29.70 Gastritis, unspecified, without bleeding (principal); K59.00 Constipation, unspecified; K76.9 Liver disease, unspecified
CPT/HCPCS: 36415; 36430; 74177; 80053; 81000; 83690; 85025